=== PATIENT | male | born 1995 | race Two or more races ===

== ENCOUNTER 2019-12-31 21:39 | Emergency (ER) | payer BC, OTHER ==
[~2019-12-31] VITALS: Ht 185.4 cm; Wt 87.5 kg
--- NOTE | 2019-12-31 22:40 | NUR ---
PT AMBULATE WITHS TEADY GAIT TO ROOM, CURENTLY IN BATHROOM, MOTHER AT BEDSIDE, SHE DOES NOT SPEAK TAJIK.
[2019-12-31 22:44] LABS: BASOPHILS # (AUTO) 0.03 x10^3/uL (0-0.1); BASOPHILS % (AUTO) 0 % (0-1); EOSINOPHILS # (AUTO) 0.04 x10^3/uL (0-0.4); EOSINOPHILS % (AUTO) 0 % (1-7); LYMPHOCYTES # (AUTO) 1.01 x10^3/uL (1-3.4); LYMPHOCYTES % (AUTO) 11 % (22-44); MD NO; MEAN CORPUSCULAR HEMOGLOBIN 29.8 pg (27.5-34.5); MEAN CORPUSCULAR HGB CONC 33.6 g/dL (33.2-36.2); MEAN PLATELET VOLUME 8.7 fL (7.4-10.4); MONOCYTES # (AUTO) 0.59 x10^3/uL (0.2-0.8); MONOCYTES % (AUTO) 6 % (2-9); NEUTROPHILS # (AUTO) 7.59 x10^3/uL (1.8-6.8); NEUTROPHILS % (AUTO) 82 % (42-75); PLATELET COUNT 253 x10^3/uL (130-400); RED BLOOD COUNT 4.52 x10^6/uL (4.38-5.82); RED CELL DISTRIBUTION WIDTH 14.3 % (9.4-14.8)
--- NOTE | 2019-12-31 22:48 | NUR ---
PT REPORTS SWELLING AND PAIN LOWER LEGS FOR ONE WEEK, STATE STHAT IT GETS WORSE AT NIGHT, HAS TAKEN NOTHING FOR THE PAIN, DENIES ANY HEALTH PROBLEMS/HISTORY,
[2019-12-31 22:52] LABS: ALBUMIN 3.7 g/dL (3.4-5.0); ANION GAP 5 mmol/L (5-15); CALCIUM 8.7 mg/dL (8.5-10.1); CHLORIDE 106 mmol/L (98-107); CREATININE 1.11 mg/dL (0.7-1.3)
--- NOTE | 2019-12-31 22:57 | NUR ---
PT REPORTS THAT HE HAD BEEN DRINKING HEAVILY BEFORE THIS STARTED.
--- NOTE | 2019-12-31 23:04 | NUR ---
IV START, FLUIDS INFUSING, PT REPORTS THAT HE BEGAN DRINKING HEAVILY LAST FRIDAY WHEN ALL OF THIS STARTED BECAUSE A FRIEND HAD AN ACCIDENTAL OD AND . PT DENIES THAT HE USES ILLICIT DRUGS OTHER THAN OCCASSIONAL THC WHHICH HE STATES THAT HE SMOKED TODAY. MOTHER AT BEDSIDE, NAD.
[2019-12-31 23:07] LABS: HCT (SEDRATE) 40.1 % (39.2-51.8)
[2019-12-31 23:14] LABS: ALBUMIN 3.6 g/dL (3.4-5.0); BILIRUBIN, DIRECT 0.1 mg/dL (0.1-0.2)
[2019-12-31 23:16] LABS: BILIRUBIN,INDIRECT 0.5 mg/dL (0.0-2.0); BILIRUBIN,TOTAL 0.6 mg/dL (0.2-1.0); TOTAL PROTEIN 7.7 g/dL (6.4-8.2)
[2019-12-31] MEDS ORDERED: SODIUM CHLORIDE 0.9% 1,000ML IVBOLUS ONE (23:30)
[2019-12-31] MEDS ORDERED: SODIUM CHLORIDE FLUSH 10ML SYR IVF ONE (23:30)
[2020-01-01 01:14] VITALS: BP 120/77
== END 2020-01-01 01:32 | disposition home or self-care (01) ==
LOC: ED 23:55
DX: R60.0 Localized edema (principal); R00.0 Tachycardia, unspecified
CPT/HCPCS: 36415; 80048; 80076; 82040; 84550; 85025; 85651; 99283; J7030